=== PATIENT | female | born 1975 | race Two or more races ===

== ENCOUNTER → 2025-04-22 | Outpatient (CLI) | payer MEDICAID, SELFPAY ==
--- NOTE | 2025-04-22 08:30 | XR_ITS ---
Examination: Breast ultrasound, unilateral, right complete Date and time of exam: April 22, 2025, 0841 hours INDICATIONS: Palpable lump right breast on clinical breast examination by physician 2 months ago Technique: Real-time finley scale ultrasonographic imaging performed right breast including all 4 quadrants as well as nipple retroareolar and axillary region. Findings: No cystic or solid mass IMPRESSION: BI-RADS Category 1: Negative study
--- NOTE | 2025-04-22 09:00 | XR_ITS ---
Examination: Diagnostic digital mammography, bilateral Computer aided detection 3-D breast Tomosynthesis, bilateral Date and time of exam: 625, 8:31 a.m. Comparisons: Prior mammograms none available. If prior mammograms can be obtained recommend comparison with today's exam. Indications: Palpable abnormality right breast. Technique: Nonmagnified MLO, CC views of the breasts to been obtained, reconstructed from 3-D Tomosynthesis images. R2 computer aided detection program utilized for evaluation of suspicious masses and/or abnormal calcifications. 3-D Tomosynthesis images obtained. Findings: There are scattered areas of fibroglandular density. No evidence of abnormal masses or suspicious calcifications. Impression: No focal abnormality seen. Recommend spot compression views of the palpable abnormality in the right breast with additional ultrasound evaluation of the right breast. Left breast is negative. Recommend return to yearly screening mammography of the left breast. BI-RADS category 0: Incomplete assessment; need additional imaging evaluation
== END | disposition home or self-care (01) ==
DX: R92.8 Other abnormal and inconclusive findings on diagnostic imaging of breast (principal)
CPT/HCPCS: 76641; 77062; 77066; G0279